=== PATIENT | female | born 1970 ===

== ENCOUNTER 2025-10-13 00:11 | Inpatient (IN) | payer MEDICARE, OTHER ==
[~2025-10-13] VITALS: Ht 152.4 cm; Wt 50.5 kg
[2025-10-13] VITALS (23 sets, daily range): BP systolic 115–199; BP diastolic 62–116
[2025-10-13] MEDS ORDERED: CREON DR 12,001 EACH PO (02:31)
[2025-10-13] MEDS ORDERED: NIFE30ER PO (02:33)
[2025-10-13] MEDS ORDERED: FURO40 PO (02:34)
[2025-10-13] MEDS ORDERED: OMEP20ER PO (02:39)
[2025-10-13] MEDS ORDERED: NOVOLOG FL100 UNIT/3 SQ (02:42)
[2025-10-13] MEDS ORDERED: CALC.25 PO (02:42)
[2025-10-13] MEDS ORDERED: INSULANI (02:43)
[2025-10-13] MEDS ORDERED: INSULANI SC (02:44)
[2025-10-13] MEDS ORDERED: HydrALAZINE HCl 20 MG / ML 1ML Vial IV PRN (02:45)
[2025-10-13] MEDS ORDERED: Ondansetron HCl 2 MG / ML 2ML Vial IV PRN (02:45)
[2025-10-13] MEDS ORDERED: FLU VACC TS2025-26(6MOS UP)/PF 45 MCG/0.5 ML SYRINGE IM SCH (02:45)
[2025-10-13 02:59] LABS: BASOPHILS ABSOLUTE AUTO 0.07 K/mm3 (0.00-0.23); BASOPHILS PERCENT AUTO 1 % (0-2); EOSINOPHILS ABSOLUTE AUTO 0.38 K/mm3 (0.00-0.68); EOSINOPHILS PERCENT AUTO 4 % (0-6); Hematocrit 26.5 % (33.0-51.0); Hemoglobin 9.0 g/dL (11.5-16.0); IMMATURE GRAN ABSOLUTE AUTO 0.02 K/mm3 (0.00-0.10); IMMATURE GRAN PERCENT AUTO 0 % (0-1); LYMPHOCYTES ABSOLUTE AUTO 2.75 K/mm3 (0.84-5.20); LYMPHOCYTES PERCENT AUTO 31 % (21-46); MONOCYTES ABSOLUTE AUTO 0.90 K/mm3 (0.16-1.47); MONOCYTES PERCENT AUTO 10 % (4-13); Mean Corpuscular HGB Conc 34.0 g/dL (31.5-36.5); Mean Corpuscular Volume 93 fL (80-100); NEUTROPHILS ABSOLUTE AUTO 4.78 K/mm3 (1.96-9.15); NEUTROPHILS PERCENT AUTO 54 % (41-73); NRBC ABSOLUTE 0.00 K/mm3 (0.00-0.02); NRBC Auto 0.0 /100 WBC (0.0-0.2); Platelet Count 239 K/mm3 (150-400); RDW Coefficient Variation 14.4 % (11.7-14.2); RDW Standard Deviation 49.0 fL (35.1-46.3)
[2025-10-13 03:15] LABS: Prothrombin Time Results 10.9 Sec (9.7-11.5)
[2025-10-13 03:19] LABS: Alanine Aminotransfer (ALT/SGP 41.0 U/L (12-78); Albumin, Blood 3.3 g/dL (3.4-5.0); Albumin/Globulin Ratio 0.9 (0.8-1.8); Anion Gap 14.0 mmol/L (3-11); Aspartate Aminotrans (AST/SGOT 24.0 U/L (12-37); Bilirubin, Total 0.4 mg/dL (0.1-1.0); Blood Urea Nitrogen 64.0 mg/dL (8-24); CO2, Blood 25.0 mmol/L (21-32); Calcium, Blood 8.0 mg/dL (8.5-10.1); Chloride, Blood 103.0 mmol/L (98-108); Creatinine, Blood 7.47 mg/dL (0.40-1.00); Globulin, Blood 3.5 g/dL (2.2-4.0); Glucose, Blood 92.0 mg/dL (70-99); Magnesium, Blood 2.5 mg/dL (1.6-2.4); Phosphorus, Blood 7.9 mg/dL (2.5-4.9); Potassium, Blood 4.6 mmol/L (3.5-5.5); Sodium, Blood 137.0 mmol/L (136-145); Total Protein, Blood 6.8 g/dL (6.4-8.2)
[2025-10-13] MEDS ORDERED: FentaNYL Citrate 50 MCG/ML 2 ML Injection IV PRN (04:15)
--- NOTE | 2025-10-13 04:20 | NUR ---
ADMISSION Admitted from OSH after pt woke up to find her newly placed tunneled HD catheter had fallen out while sleeping. OSH placed a R groin trialysis catheter. Pt was treated for hyperkalemia prior to transfer. On arrival pt was hypertensive to the 180s, given hydralazine which did not work but per doctor BP okay. Pt reported 9/10 pain in R groin and fentanyl given. Plan for HD today - pt is a MWF pt and did receive HD 10/10.
[2025-10-13] MEDS ORDERED: Amylase/Lipase/Protease DR Cap 12,000 PO SCH (08:30)
--- NOTE | 2025-10-13 09:41 | NUR ---
Palliative care note: Consult received for advanced care planning and symptom management. Reviewed medical record. No polst /AD on file or with [facility].
[2025-10-13] MEDS ORDERED: Epoetin Alfa-EPBX 4,000 UNIT/ML 1ML Vial SC ONE (11:40)
--- NOTE | 2025-10-13 11:55 | NUR ---
PT TAKEN TO DIALYSIS VIA BED @ 1135AM. LUNCH TRAY DELIVERED AND AFTERNOON MEDS ADMINISTERED.
--- NOTE | 2025-10-13 17:45 | NUR ---
PT IS A&Ox4 AND ABLE TO MAKE NEEDS KNOWN. SHE IS ON RA W/O2 SATS > 92%. SHE IS A SBA FOR AMBULATION. TRIALYSIS CATHETER TO THE R GROIN W/DRESSING CDI. SHE RECEIVED HD TODAY AND THEY REMOVED 2L. NO OTHER NEEDS OR CONCERNS NOTED @ THIS TIME. BED IN LOW POSITION, CALL LIGHT AND PERSONAL BELONGINGS IN REACH.
[2025-10-14] VITALS (10 sets, daily range): BP systolic 133–191; BP diastolic 73–110
[2025-10-14 03:35] LABS: BASOPHILS ABSOLUTE AUTO 0.09 K/mm3 (0.00-0.23); BASOPHILS PERCENT AUTO 1 % (0-2); EOSINOPHILS ABSOLUTE AUTO 0.27 K/mm3 (0.00-0.68); EOSINOPHILS PERCENT AUTO 4 % (0-6); Hematocrit 26.9 % (33.0-51.0); Hemoglobin 9.4 g/dL (11.5-16.0); IMMATURE GRAN ABSOLUTE AUTO 0.02 K/mm3 (0.00-0.10); IMMATURE GRAN PERCENT AUTO 0 % (0-1); LYMPHOCYTES ABSOLUTE AUTO 2.30 K/mm3 (0.84-5.20); LYMPHOCYTES PERCENT AUTO 31 % (21-46); MONOCYTES ABSOLUTE AUTO 0.72 K/mm3 (0.16-1.47); MONOCYTES PERCENT AUTO 10 % (4-13); Mean Corpuscular HGB Conc 34.9 g/dL (31.5-36.5); Mean Corpuscular Volume 93 fL (80-100); NEUTROPHILS ABSOLUTE AUTO 3.95 K/mm3 (1.96-9.15); NEUTROPHILS PERCENT AUTO 54 % (41-73); NRBC ABSOLUTE 0.00 K/mm3 (0.00-0.02); NRBC Auto 0.0 /100 WBC (0.0-0.2); Platelet Count 230 K/mm3 (150-400); RDW Coefficient Variation 14.5 % (11.7-14.2); RDW Standard Deviation 49.0 fL (35.1-46.3)
[2025-10-14 03:54] LABS: Albumin, Blood 3.2 g/dL (3.4-5.0); Anion Gap 9 mmol/L (3-11); Blood Urea Nitrogen 30 mg/dL (8-24); CO2, Blood 33 mmol/L (21-32); Calcium, Blood 7.7 mg/dL (8.5-10.1); Chloride, Blood 94 mmol/L (98-108); Creatinine, Blood 4.64 mg/dL (0.40-1.00); Glucose, Blood 176 mg/dL (70-99); Phosphorus, Blood 5.9 mg/dL (2.5-4.9); Potassium, Blood 4.1 mmol/L (3.5-5.5); Sodium, Blood 132 mmol/L (136-145)
--- NOTE | 2025-10-14 04:27 | NUR ---
SHIFT SUMMARY got benadryl to help with itching/sleep. slightly nauseous but no emesis, given zofran. oxycodone for headache. NPO for permacath placement today.
[2025-10-14] MEDS ORDERED: NS 250 ML IV ONE (08:20)
[2025-10-14] MEDS ORDERED: Heparin Sodium 1000 Units/ML 10ML MDV ONE (08:20)
[2025-10-14] MEDS ORDERED: Midazolam HCl 1MG / ML 2ML Vial ONE (08:31)
[2025-10-14] MEDS ORDERED: FentaNYL Citrate 50 MCG/ML 2 ML Injection ONE (08:31)
[2025-10-14] MEDS ORDERED: NS 1,000 ML IV ONE (08:32)
[2025-10-14] MEDS ORDERED: CeFAZolin Sodium 1000 mg Vial ONE (08:59)
[2025-10-14] MEDS ORDERED: NS 50 ML IV ONE (08:59)
[2025-10-14] MEDS ORDERED: Heparin Sodium 10,000 Units/ML 1ML MDV ONE (09:13)
--- NOTE | 2025-10-14 09:30 | NUR ---
PT IS A&Ox4 AND ABLE TO MAKE NEEDS KNOWN. SHE IS ON RA W/O2 SATS > 92%. SHE IS A SBA FOR AMBULATION. NEW PERMACATH PLACED TODAY. R FEMORAL TRIALYSIS CATH STILL IN PLACE. NO OTHER NEEDS OR CONCERNS NOTED @ THIS TIME. BED IN LOW POSITION, CALL LIGHT AND PERSONAL BELONGINGS IN REACH.
--- NOTE | 2025-10-14 14:12 | NUR ---
R FEMORAL TRIALYSIS CATHETER REMOVED @ 1315. PRESSURE HELD FOR 5 MINUTES AND THEN PETROLEUM GAUZE, STERILE GAUZE, AND TEGADERM PLACED A PRESSURE DRESSING. PT TOLERATED PROCEDURE WELL. SHE WAS THEN KEPT FLAT FOR 40 MINUTES W/NO NEW BLEEDING. HEAD ELEVATED SLIGHTLY AFTER TIME WAS UP AND PT STARTED BLEEDING ABOUT 5 MINUTES AFTER ELEVATING THE HEAD OF THE BED. PRESSURE APPLIED FOR ANOTHER 10 MINUTES AND THEN NEW DRESSING PLACED. SANDBAGS ALSO PLACED TO KEEP PRESSURE IN PLACE AND PT BEING KEPT FLAT.
--- NOTE | 2025-10-14 18:28 | NUR ---
R FEMORAL TRIALYSIS SITE WITHOUT REDNESS, BLEEDING, OR SWELLING. DRESSING C/D/I. PERMACATH TO THE R SUBCLAVIAN AREA WITH NO REDNESS, BLEEDING, OR SWELLING. DRESSING C/D/I. PT HAS HAD EPISODES OF N/V THROUGHOUT THIS SHIFT AND BEEN MEDICATED PER EMAR. NO OTHER NEEDS OR CONCERNS NOTED @ THIS TIME. BED IN LOW POSITION, CALL LIGHT AND PERSONAL BELONGINGS IN REACH.
--- NOTE | 2025-10-14 22:09 | NUR ---
ASSUMED CARE OF PATIENT AT 1900. PATIENT A/O X 4, SPEAKING IN COMPLETE SENTENCES AND OBEYS COMMANDS. SINUS RHYTHM 90s. SPO2 > 95% ON ROOM AIR. ALL OTHER VSS. ABDOMEN IS SOFT AND NON TENDER. PT REPORTS NAUSEA, NO ACTIVE VOMITING. SBA ASSIST TO BATHROOM. RIGHT FEMORAL SITE WITHOUT REDNESS OR BLEEDING, DRESSING C/D/I. RIGHT SUBCLAVIAN PERMACATH SITE DRESSING IS C/D/I. SITE IS TENDER AND ACHING, PAIN CONTROLLED WITH MEDS AND REST. BED LOCKED IN LOWEST POSITION, CALL LIGHT WITHIN REACH.
[2025-10-15] VITALS (14 sets, daily range): BP systolic 129–168; BP diastolic 71–95
[2025-10-15 04:36] LABS: BASOPHILS ABSOLUTE AUTO 0.09 K/mm3 (0.00-0.23); BASOPHILS PERCENT AUTO 1 % (0-2); EOSINOPHILS ABSOLUTE AUTO 0.29 K/mm3 (0.00-0.68); EOSINOPHILS PERCENT AUTO 4 % (0-6); Hematocrit 25.7 % (33.0-51.0); Hemoglobin 8.9 g/dL (11.5-16.0); IMMATURE GRAN ABSOLUTE AUTO 0.03 K/mm3 (0.00-0.10); IMMATURE GRAN PERCENT AUTO 0 % (0-1); LYMPHOCYTES ABSOLUTE AUTO 2.28 K/mm3 (0.84-5.20); LYMPHOCYTES PERCENT AUTO 28 % (21-46); MONOCYTES ABSOLUTE AUTO 0.96 K/mm3 (0.16-1.47); MONOCYTES PERCENT AUTO 12 % (4-13); Mean Corpuscular HGB Conc 34.6 g/dL (31.5-36.5); Mean Corpuscular Volume 92 fL (80-100); NEUTROPHILS ABSOLUTE AUTO 4.51 K/mm3 (1.96-9.15); NEUTROPHILS PERCENT AUTO 55 % (41-73); NRBC ABSOLUTE 0.00 K/mm3 (0.00-0.02); NRBC Auto 0.0 /100 WBC (0.0-0.2); Platelet Count 211 K/mm3 (150-400); RDW Coefficient Variation 14.2 % (11.7-14.2); RDW Standard Deviation 47.6 fL (35.1-46.3)
[2025-10-15 05:35] LABS: Alanine Aminotransfer (ALT/SGP 21.0 U/L (12-78); Albumin, Blood 3.3 g/dL (3.4-5.0); Albumin/Globulin Ratio 1.0 (0.8-1.8); Anion Gap 16.0 mmol/L (3-11); Aspartate Aminotrans (AST/SGOT 15.0 U/L (12-37); Bilirubin, Total 0.4 mg/dL (0.1-1.0); Blood Urea Nitrogen 53.0 mg/dL (8-24); CO2, Blood 26.0 mmol/L (21-32); Calcium, Blood 7.5 mg/dL (8.5-10.1); Chloride, Blood 85.0 mmol/L (98-108); Creatinine, Blood 6.46 mg/dL (0.40-1.00); Globulin, Blood 3.3 g/dL (2.2-4.0); Glucose, Blood 377.0 mg/dL (70-99); Potassium, Blood 5.7 mmol/L (3.5-5.5); Total Protein, Blood 6.6 g/dL (6.4-8.2)
[2025-10-15 05:38] LABS: Sodium, Blood 121.0 mmol/L (136-145)
--- NOTE | 2025-10-15 06:01 | NUR ---
SHIFT SUMMARY SEE PREVIOUS NOTE. PATIENT SLEPT WELL MOST OF SHIFT. SHE IS COOPERATIVE WITH CARE AND USES CALL LIGHT APPROPRIATELY. ALL VSS. NAUSEA HAS RESOLVED. RIGHT FEMORAL SITE WITHOUT RENESS OR BLEEDING, DRESSING C/D/I. RIGHT SUBCLAVIAN PERMACATH SITE WITHOUT REDNESS OR BLEEDING, DRESSING C/D/I. PAIN IS WELL CONTROLLED WITH MEDS, SEE EMAR. NO ACUTE EVENTS OVERNIGHT. WILL GIVE REPORT TO ONCOMING RN. BED LOCKED IN LOWEST POSITION AND CALL LIGHT WITHIN REACH.
[2025-10-15 07:42] LABS: Alanine Aminotransfer (ALT/SGP 19.0 U/L (12-78); Albumin, Blood 3.3 g/dL (3.4-5.0); Albumin/Globulin Ratio 0.9 (0.8-1.8); Anion Gap 15.0 mmol/L (3-11); Aspartate Aminotrans (AST/SGOT 16.0 U/L (12-37); Bilirubin, Total 0.4 mg/dL (0.1-1.0); Blood Urea Nitrogen 53.0 mg/dL (8-24); CO2, Blood 27.0 mmol/L (21-32); Calcium, Blood 8.0 mg/dL (8.5-10.1); Chloride, Blood 85.0 mmol/L (98-108); Creatinine, Blood 6.63 mg/dL (0.40-1.00); Globulin, Blood 3.5 g/dL (2.2-4.0); Glucose, Blood 345.0 mg/dL (70-99); Potassium, Blood 5.3 mmol/L (3.5-5.5); Sodium, Blood 122.0 mmol/L (136-145); Total Protein, Blood 6.8 g/dL (6.4-8.2)
[2025-10-15] MEDS ORDERED: Insulin Glargine 100 Unit/ML 3 ML SYR SC SCH (09:00)
[2025-10-15] MEDS ORDERED: Heparin Sodium,Porcine 5,000 UNIT/0.5 ML SDV SC SCH (09:00)
[2025-10-15] MEDS ORDERED: Insulin Regular 100 UNIT/ML 10ML Vial SC SCH (11:30)
--- NOTE | 2025-10-15 15:34 | NUR ---
SHIFT SUMMARY/ DISCHARGED NOTE: PT DISCHARGED TO HOME IN NO ACUTE STRESS AT THIS TIME. PT HYPERTENSIVE PROIOR TO DC. PROVIDER CALLED FOR A ONE TIME ORDER OF BP MED THAT WAS NOT GIVEN THIS AM DUE TO DIALYSIS. THIS RN WENT OVE WRITTEN AND VERBAL DC INSTRUCTIONS AND WAS INSTRUCTED TO COME BACK TO THIS FACILITY IF SYMPTOMS COME BACK. DENIES ANY QUESTIONS OR CONCERNS. PT DISCHARGED VIA WHEEL CHAIR WITH SIGNIFICANT OTHER.
== END 2025-10-15 14:55 | disposition home or self-care (01) | DRG 674 ==
LOC: PCU 00:11
PROVIDERS: Internal Medicine Nephrology; Student in an Organized Health Care Education/Training Program; ADMIT Internal Medicine
PROC: 5A1D70Z Performance of Urinary Filtration, Intermittent, Less than 6 Hours Per Day (ICD-10-PCS; 2025-10-13)
PROC: 0JH63XZ Insertion of Tunneled Vascular Access Device into Chest Subcutaneous Tissue and Fascia, Percutaneous Approach (ICD-10-PCS; principal; 2025-10-14)
PROC: 02HV33Z Insertion of Infusion Device into Superior Vena Cava, Percutaneous Approach (ICD-10-PCS; 2025-10-14)
DX: T82.42XA Displacement of vascular dialysis catheter, initial encounter (principal); I12.0 Hypertensive chronic kidney disease with stage 5 chronic kidney disease or end stage renal disease; N25.81 Secondary hyperparathyroidism of renal origin; N18.6 End stage renal disease; Y71.2 Prosthetic and other implants, materials and accessory cardiovascular devices associated with adverse incidents; E87.5 Hyperkalemia; E83.39 Other disorders of phosphorus metabolism; I16.0 Hypertensive urgency; E11.22 Type 2 diabetes mellitus with diabetic chronic kidney disease; D63.1 Anemia in chronic kidney disease; J44.9 Chronic obstructive pulmonary disease, unspecified; E78.5 Hyperlipidemia, unspecified; Z99.2 Dependence on renal dialysis; Z85.07 Personal history of malignant neoplasm of pancreas; Z88.8 Allergy status to other drugs, medicaments and biological substances; Z79.4 Long term (current) use of insulin
CPT/HCPCS: 36415; 76937; 80053; 80069; 82947; 83735; 83880; 84100; 85025; 85610; 96372; 96374; 96375; 96376; 99152; 99153; A9270; C1750; C1769; C1894; G0378; J0360; J0690; J1644; J1815; J2250; J2405; J3010; J7030; J7050; Q5106